=== PATIENT | male | born 1975 | race Caucasian/White ===

== ENCOUNTER 2022-05-08 20:39 | Emergency (ER) | payer OTHER ==
[2022-05-08] MEDS ORDERED: Metoclopramide HCl 10 MG/2 ML VIAL ONE (21:29)
[2022-05-08] MEDS ORDERED: Ketorolac Tromethamine 30 MG/ML VIAL ONE (21:29)
[2022-05-08 21:49] LABS: #Basophils 0.1 thou/uL (0.0-0.2); #Eosinphils 0.1 thou/uL (0.0-0.7); #Monocytes 0.4 thou/uL (0.11-0.59); %Basophils 0.8 % (0.0-1.0); %Eosinophils 0.9 % (0.0-10.0); %Monocytes 5.5 % (0.0-10.0); %Neutrophils 65.7 % (42.0-75.0); Mean Corpuscular HGB CONC 34.3 g/dL (32.0-36.0); Mean Corpuscular Hemoglobin 30.2 pg (27.0-31.0); Mean Corpuscular Volume 88.1 fL (78.0-98.0); Mean Platelet Volume 10.7 fL (7.4-10.4); Platelet Count 235 thou/uL (130-400); RBC Distribution Width 11.2 % (11.5-14.5); Red Blood Cell (RBC) Count 4.97 mill/uL (4.70-6.10); White Blood Cell (WBC) Count 7.5 thou/uL (4.8-10.8)
[2022-05-08 22:09] LABS: ALT (SGPT) 24 U/L (8-55); AST (SGOT) 22 U/L (5-34); Albumin 3.6 g/dL (3.5-5.0); Alkaline Phosphatase 71 U/L (40-110); Anion Gap 13 mmol/L (10-20); BUN (Urea Nitrogen) 18 mg/dL (8.9-20.6); Bilirubin, Total 0.7 mg/dL (0.2-1.2); Calc. Creatinine Clearance 0 mL/min (70-130); Calcium 9.1 mg/dL (7.8-10.44); Carbon Dioxide 25 mmol/L (22-29); Chloride 98 mmol/L (98-107); Estimated GFR 70; Globulin 3.6 g/dL (2.4-3.5); Glucose 258 mg/dL (70-105); Potassium 3.6 mmol/L (3.5-5.1); Protein, Total 7.2 g/dL (6.0-8.3); Sodium 132 mmol/L (136-145)
[2022-05-08 22:24] LABS: Bilirubin Negative (Negative); Blood, Urine Moderate (Negative); Clarity Clear (Clear); Glucose, Urine (Dipstick) 500 mg/dL (Negative); Ketone, Urine Negative (Negative); Leukocyte Negative (Negative); Nitrite Negative (Negative); Protein, Urine (Dipstick) > or equal to 300 mg/dL (Neg-Trace); Specific Gravity, Urine 1.015 (1.005-1.030); Urobilinogen 0.2 mg/dL (Less than 2); pH, Urine 5.5 (5.0-9.0)
[2022-05-08 22:29] LABS: WBC/HPF 0-3 HPF (0-3)
== END 2022-05-09 01:00 | disposition short-term general hospital (02) ==
LOC: MADERS 20:39
DX: R42 Dizziness and giddiness (principal); E11.65 Type 2 diabetes mellitus with hyperglycemia; Z79.4 Long term (current) use of insulin; H53.9 Unspecified visual disturbance; I10 Essential (primary) hypertension; E78.2 Mixed hyperlipidemia; Z79.899 Other long term (current) drug therapy; Z79.82 Long term (current) use of aspirin
CPT/HCPCS: 70450; 80053; 81003; 81015; 85025; 93005; 96374; 96375; J1885; J2765

== ENCOUNTER 2023-01-05 16:26 | Emergency (ER) | payer OTHER ==
[2023-01-05] MEDS ORDERED: Prochlorperazine 10 MG/2 ML VIAL ONE (17:16)
[2023-01-05] MEDS ORDERED: Meclizine HCl 25 MG TAB ONE (17:16)
[2023-01-05] MEDS ORDERED: Lactated Ringer's 1,000 ML ONE (17:16)
[2023-01-05 17:21] LABS: #Basophils 0.1 thou/uL (0.0-0.2); #Lymphocytes 0.6 thou/uL (1.20-3.40); #Monocytes 0.5 thou/uL (0.11-0.59); #Neutrophils 8.3 thou/uL (1.40-6.50); %Basophils 0.7 % (0.0-1.0); %Eosinophils 0.1 % (0.0-10.0); %Lymphocytes 6.6 % (21.0-51.0); %Monocytes 4.8 % (0.0-10.0); %Neutrophils 87.7 % (42.0-75.0); Mean Corpuscular HGB CONC 34.3 g/dL (32.0-36.0); Mean Corpuscular Hemoglobin 31.6 pg (27.0-31.0); Mean Corpuscular Volume 92.1 fl (78.0-98.0); Mean Platelet Volume 8.2 fL (7.4-10.4); Platelet Count 230 10x3/uL (130-400); RBC Distribution Width 11.2 % (11.5-14.5); Red Blood Cell (RBC) Count 4.45 mill/uL (4.70-6.10); White Blood Cell (WBC) Count 9.5 10x3/uL (4.8-10.8)
[2023-01-05 17:25] LABS: Prothrombin Time 13.1 sec (12.0-14.7)
[2023-01-05 17:26] LABS: PTT 27.8 sec (22.9-36.1)
[2023-01-05 17:33] LABS: ALT (SGPT) 26 U/L (8-55); AST (SGOT) 31 U/L (5-34); Albumin 3.8 g/dL (3.5-5.0); Alkaline Phosphatase 65 U/L (40-110); Anion Gap 19 mmol/L (10-20); BUN (Urea Nitrogen) 12 mg/dL (8.9-20.6); Bilirubin, Total 0.4 mg/dL (0.2-1.2); Calc. Creatinine Clearance 0 mL/min (70-130); Calcium 9.2 mg/dL (7.8-10.44); Carbon Dioxide 19 mmol/L (22-29); Chloride 100 mmol/L (98-107); Estimated GFR 94; Globulin 3.4 g/dL (2.4-3.5); Glucose 169 mg/dL (70-105); Potassium 4.6 mmol/L (3.5-5.1); Protein, Total 7.2 g/dL (6.0-8.3); Sodium 133 mmol/L (136-145)
[2023-01-05] MEDS ORDERED: Aspirin Chewable 81 MG TAB ONE (18:06)
== END 2023-01-05 23:45 | disposition home or self-care (01) ==
LOC: MADERS 16:26
DX: G45.9 Transient cerebral ischemic attack, unspecified (principal); E87.20 Acidosis, unspecified; E11.9 Type 2 diabetes mellitus without complications; Z79.4 Long term (current) use of insulin; E78.2 Mixed hyperlipidemia; I10 Essential (primary) hypertension; F17.220 Nicotine dependence, chewing tobacco, uncomplicated; Z79.82 Long term (current) use of aspirin; Z79.84 Long term (current) use of oral hypoglycemic drugs
CPT/HCPCS: 36415; 36416; 70450; 71045; 80053; 84484; 85025; 85610; 85730; 93005; 94760; 96374; J0780; J7120

== ENCOUNTER 2024-07-23 17:47 | Emergency (ER) | payer SELFPAY ==
[~2024-07-23 17:47] MED LIST: Iopamidol 370 76% 100 ML VIAL ONE; Sodium Chloride 0.9% 100 ML BAG ONE
[2024-07-23 18:31] LABS: #Basophils 0.1 thou/uL (0.0-0.2); #Eosinophils 0.1 thou/uL (0.0-0.7); #Lymphocytes 1.9 thou/uL (1.20-3.40); #Monocytes 0.5 thou/uL (0.11-0.59); #Neutrophils 2.4 thou/uL (1.40-6.50); %Eosinophils 1.7 % (0.0-10.0); %Lymphocytes 38.2 % (21.0-51.0); %Monocytes 9.6 % (0.0-10.0); %Neutrophils 48.6 % (42.0-75.0); Hematocrit 44.9 % (42.0-52.0); Hemoglobin 15.2 g/dL (14.0-18.0); Mean Corpuscular HGB CONC 33.8 g/dL (32.0-36.0); Mean Corpuscular Hemoglobin 30.5 pg (27.0-31.0); Mean Corpuscular Volume 90.4 fl (78.0-98.0); Mean Platelet Volume 8.8 fL (7.4-10.4); Platelet Count 179 10x3/uL (130-400); Red Blood Cell (RBC) Count 4.97 mill/uL (4.70-6.10)
[2024-07-23 18:36] LABS: INR-International Normal Ratio 0.8; Prothrombin Time 11.2 sec (12.0-14.7)
[2024-07-23 18:44] LABS: ALT (SGPT) 51 U/L (8-55); AST (SGOT) 35 U/L (5-34); Albumin 2.7 g/dL (3.5-5.0); Alkaline Phosphatase 113 U/L (40-110); Anion Gap 15 mmol/L (10-20); BUN (Urea Nitrogen) 15 mg/dL (8.9-20.6); Bilirubin, Total 0.4 mg/dL (0.2-1.2); Calc. Creatinine Clearance 0 mL/min (70-130); Calcium 8.4 mg/dL (7.8-10.44); Carbon Dioxide 20 mmol/L (22-29); Chloride 98 mmol/L (98-107); Estimated GFR 73; Globulin 4.1 g/dL (2.4-3.5); Potassium 3.6 mmol/L (3.5-5.1); Protein, Total 6.8 g/dL (6.0-8.3); Sodium 129 mmol/L (136-145)
[2024-07-23 18:46] LABS: Troponin I Less than 0.010 ng/mL (< 0.028)
[2024-07-23 18:49] LABS: Critical Call Chemistry EMS.CLJ@1849; Glucose 402 mg/dL (70-105)
[2024-07-23] MEDS ORDERED: Insulin Regular, Human 100 UNIT/ML 10 ML VIAL ONE (19:44)
[2024-07-23 19:46] LABS: Acetaminophen Less than 10 mcg/mL (Less than 10); Alcohol 138.1 mg/dL (Less than 10); Salicylate Less than 8.0 mg/dL (Less than 8.0)
== END 2024-07-23 22:50 | disposition short-term general hospital (02) ==
LOC: MADERS 17:47
DX: I63.9 Cerebral infarction, unspecified (principal); I10 Essential (primary) hypertension; R29.706 NIHSS score 6; E11.65 Type 2 diabetes mellitus with hyperglycemia; E78.5 Hyperlipidemia, unspecified; F10.20 Alcohol dependence, uncomplicated; F17.220 Nicotine dependence, chewing tobacco, uncomplicated
CPT/HCPCS: 36416; 70450; 70496; 70498; 71045; 80053; 80307; 84484; 85025; 85610; 85730; 93005; 94760; J1815; Q9967